=== PATIENT | male | born 1955 | race Two or more races ===

== ENCOUNTER 2024-02-17 07:28 | Day surgery (SDC) | payer OTHER ==
[2024-02-17] MEDS ORDERED: fentaNYL CITRATE 50 MCG/ML AMPUL IV PUSH ONE (11:00)
[2024-02-17] MEDS ORDERED: MIDAZOLAM HCL 2 MG/2 ML VIAL IV ONE (11:00)
[2024-02-17] MEDS ORDERED: DIPHENHYDRAMINE HCL 50 MG/ML VIAL 1ML IV ONE ×2 (11:00)
[2024-02-17] MEDS ORDERED: ONDANSETRON HCL 2 MG/ML VIAL IV ONE (11:00)
== END 2024-02-17 13:30 | disposition home or self-care (01) ==
LOC: AMB-ENDOS 07:28 → CIR.AMB 13:00 → AMB-ENDOS 13:30
PROVIDERS: ATTEND Colon & Rectal Surgery
DX: K62.5 Hemorrhage of anus and rectum (principal); K64.8 Other hemorrhoids